=== PATIENT | female | born 1975 | race Caucasian/White ===

== ENCOUNTER 2024-03-22 09:51 | Emergency (ER) | payer MEDICAID, SELFPAY ==
--- NOTE | 2024-03-22 09:55 | EKG_ITS ---
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1975 Requested By: ED Temporary Provider Order Number: [id number] Reading MD: ED Temporary Provider Measurements Intervals [place] Rate: 68 P: 9 [place]: 175 QRS: -26 QRSD: 98 T: 9 QT: 390 QTc: 416 Interpretive Statements SINUS RHYTHM BORDERLINE LEFT AXIS DEVIATION [QRS AXIS < -20] INCOMPLETE RIGHT BUNDLE BRANCH BLOCK [90+ ms QRS DURATION, TERMINAL R IN V1/V2, 40+ ms S IN I/aVL/V4/V5/V6] MINIMAL VOLTAGE CRITERIA FOR LVH, CONSIDER NORMAL VARIANT [MEETS CRITERIA IN ONE OF: R(aVL), S(V1), R(V5), R(V5/V6)+S(V1)] No previous ECG available for comparison /store/S0/[id number]
[2024-03-22 10:01] VITALS: BP 158/87; PULSE 66; RESP 18; TEMP 36.6; O2SAT 98
[2024-03-22 10:02] VITALS: BMI 43.5
--- NOTE | 2024-03-22 10:19 | XR_ITS ---
Examination: CT brain head without contrast. 2-D sagittal coronal reconstructions Date and time of exam:March 22, 2024 1330 hrs. Indications: Headaches dizziness syncopal episode at work today CTDI: vol (mGy):47 DLP: (mGycm):927 Technique: Multiple CT axial sections of the brain have been obtained, 5 mm slice thickness. Contrast has not been administered. 2-D sagittal, coronal reconstructions have been obtained Low dose protocols were performed. One or more of the following dose reduction techniques were used; automated exposure control, adjustment of the mA and/or KV according to patient size, use of iterative reconstruction technique. Findings: No significant ventricular enlargement. Intra-axial or extra-axial hemorrhage density is not seen. No mass effect or midline shift Basal cisterns are not remarkable. Fourth ventricle is midline. Cranial vault intact. Impression: Negative for acute hemorrhage, mass effect or midline shift Advise clinical correlation and follow-up accordingly
[2024-03-22 10:38] VITALS: BP 131/92; BP 151/97; BP 164/95; PULSE 64; PULSE 71; PULSE 85
--- NOTE | 2024-03-22 10:50 | XR_ITS ---
Examination: CTA chest, with intravenous contrast. CTA abdomen, with intravenous contrast. CTA pelvis, with intravenous contrast. 2-D sagittal and coronal reconstructions. 3-D reconstructions. Date and time of exam: March 22, 2024 at 1358 hrs. Indications: Chest abdominal pain onset today CTDI vol (mgy) 15 DLP (MGycm) 1091 Technique: Multiple CTA images, 2.0 mm slice thickness, obtained chest, abdomen, pelvis, with the high-resolution 64 slice scanner. 100 cc Isovue-370 is administered intravenously. Sagittal and coronal 2-D reconstructions are obtained. 3-D reconstructions, angiographic images are obtained. 3-D postprocessing, including vascular maximum intensity projections. Low dose protocols were performed. One or more of the following dose reduction techniques were used; automated exposure control, adjustment of the mA and/or KV according to patient size, use of iterative reconstruction technique. Findings: No thoracic aortic aneurysmal dilatation or dissection Pulmonary artery segments are not enlarged No pulmonary artery emboli No paratracheal tracheobronchial or bronchopulmonary adenopathy No pneumonia pulmonary edema or pleural disease 8mm pulmonary nodule posterior right lung No visualized liver or splenic lesion No gallstones No pancreatic mass or peripancreatic edema No renal or ureteral calculi, no hydronephrosis Aorta normal size 28 mm fat-containing umbilical hernia No bowel obstruction Small lymph nodes in the right lower mesentery Normal appendix No diverticulitis Moderate stool throughout the entire colon No pelvic mass Urinary bladder intact Thoracic lumbar vertebral bodies demonstrate mild spondylosis Osseous structures appear intact Impression: No thoracic aortic aneurysmal dilatation or dissection Negative for pulmonary artery emboli No paratracheal tracheobronchial or bronchopulmonary significant lymphadenopathy 8mm pulmonary nodule posterior right lung, recommend follow-up PA lateral chest in 3 months No renal or ureteral calculi Negative for pancreatitis Normal appendix No bowel obstruction or diverticulitis
--- NOTE | 2024-03-22 10:55 | PD.EDNEURO ---
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 These symptoms occurred during her break at 8:45 AM. On triage, her neurological examination was unremarkable. However, when the patient was asked to stand and ambulate, she became lightheaded, diaphoretic, and presyncopal again. Orthostatic vital signs revealed a baseline blood pressure of 164/95 mmHg and a pulse of 71 bpm while lying down. Upon standing, her blood pressure initially dropped to 151/97 mmHg with a heart rate of 85 bpm, and then further dropped to 131/92 mmHg with a heart rate of 65 bpm. The patient continued to experience lightheadedness during these measurements. Differential Diagnosis: The patient's symptoms, including lightheadedness, presyncope, and the change in vital signs with orthostatism, suggest a possible diagnosis of orthostatic hypotension. The blood pressure drop upon standing, along with the associated symptoms, can be indicative of an autonomic failure or volume depletion, but this should be explored further. Other possible causes to consider are: Vasovagal syncope: Although this typically presents with a more dramatic drop in heart rate and blood pressure, it could be a consideration, especially if there is an element of emotional or physical stress triggering her symptoms. Cardiovascular issues: Conditions like arrhythmias or structural heart disease could cause presyncope and orthostatic hypotension. Electrolyte imbalances: Particularly if the patient is dehydrated or on medications, electrolyte disturbances could contribute to symptoms. Neurological issues: Although the neurological exam was unremarkable, a subtle issue with autonomic regulation (e.g., postural orthostatic tachycardia syndrome, or POTS) could be considered. Hypoglycemia: If she has any underlying conditions such as diabetes or is on any medications that could lower blood sugar, hypoglycemia could be contributing to the symptoms. Next Steps: Further evaluation of orthostatic hypotension: Checking hydration status and electrolyte levels could help in identifying volume depletion or imbalances. Cardiac workup: An ECG, echocardiogram, or Holter monitor may be needed if an arrhythmia or structural heart problem is suspected. Neurological follow-up: Consider evaluation by a neurologist to rule out any autonomic dysfunction if episodes persist. Laboratory tests: Serum electrolytes, blood glucose, and possibly a complete blood count (CBC) to assess for anemia. Related Data Home Medications ?Medication ?Instructions ?Recorded ?Confirmed metoprolol succinate 50 mg 50 mg PO QDAY 08/12/23 08/12/23 tablet,extended release 24 hr pantoprazole 40 mg tablet,delayed 40 mg PO QDAY 08/12/23 08/12/23 release sertraline 100 mg tablet 100 mg PO QDAY 08/12/23 08/12/23 Previous Rx's ?Medication ?Instructions ?Recorded ciprofloxacin HCl 500 mg tablet 500 mg PO BID #10 tabs 08/16/23 Allergies Allergy/AdvReac Type Severity Reaction Status Date / Time Penicillins Allergy Severe HIVES AND Verified 03/22/24 09:52 DIFFICULTY BREATHING Review of Systems Review of Systems Systems Reviewed: All systems reviewed, normal except as documented ED Exam General Limitations: Present no limitations General appearance: Present alert Head Head exam: Present atraumatic Eye Eye exam: Present normal appearance, PERRL and EOMI ENT ENT exam: Present normal exam Neck Neck exam: Present normal inspection Respiratory Respiratory exam: Present normal lung sounds bilaterally Cardiovascular Cardiovascular exam: Present regular rate and normal rhythm Abdominal Exam Abdominal exam: Present soft and normal bowel sounds Extremities Exam Extremities exam: Present normal inspection Back Exam Back exam: Present normal inspection Neurological Exam Neurological exam: Present alert, oriented X3 and CN II-XII intact Psychiatric Psychiatric exam: Present depressed and anxious Skin Skin exam: Present warm and dry Course Course Course Narrative: 1257 Patient reports feeling heaviness in her chest. Will repeat her troponin. Still is symptomatic when she stands up. 1410 Patient's orthostatic hypotension has resolved. It is unclear at this point what happened. Apparently had a transient autonomic nervous system event that she was not able to regulate her blood pressure and symptoms when standing up. I discussed the patient with Dr. Jerome who recommends the patient to be admitted overnight for telemetry observation and probably an echocardiogram either inpatient or as outpatient. He will consult with the patient. Patient was discussed with the hospitalist team who will admit the patient. A vast number of possible etiologies were considered, including but not limited to acute coronary syndrome, intracranial pathology, as well as pulmonary embolism, as well as metabolic causes such as anemia and electrolyte imbalances, which were all ruled out at this time. Quality Measures none Orders Category Date Time Status Telecommunications Equipment Installer STAT Care 03/22/24 10:18 Completed EKG (ED ONLY) *Do not use* NOW Care 03/22/24 09:55 Completed Insert IV STAT Care 03/22/24 10:18 Completed Orthostatic Vitals STAT Care 03/22/24 10:[address] angio chest abdomen pelvis Stat Exams 03/22/24 10:[address] head/brain wo con Stat Exams 03/22/24 10:19 Completed EKG (ED Only) Stat Exams 03/22/24 09:55 Draft CBC Stat Lab 03/22/24 10:59 Completed Comprehensive Metabolic Panel Stat Lab 03/22/24 10:59 Completed HCG Qualitative,Urine Stat Lab 03/22/24 11:02 Completed Prothrombin Time with INR Stat Lab 03/22/24 10:59 Completed Troponin I Stat Lab 03/22/24 10:59 Completed Troponin I Stat Lab 03/22/24 13:20 Completed Urinalysis Stat Lab 03/22/24 11:02 Completed Vital Signs Vital signs: Vital Signs Temperature 97.8 F 03/22/24 10:01 Pulse Rate 66 03/22/24 10:01 Respiratory Rate 18 03/22/24 10:01 Blood Pressure 158/87 H 03/22/24 10:01 Pulse Oximetry (%) 98 03/22/24 10:01 Oxygen Delivery Method Room Air 03/22/24 10:01 Neuro Symptoms / Deficit MDM Narrative MDM Narrative:: Patient currently has no active bleeding to the foot. See the course section for detailed explanation Patient data External records reviewed:: [facility] previous records Clinical information provided by:: patient Social determinants that could affect healthcare access:: none Patient has the following chronic illnesses:: Not applicable How is presenting disease/condition affected by chronic disease/condition?: no chronic disease Evaluation data The following diagnostics were reviewed and interpreted by me:: lab results, radiology exam(s) and EKG tracing(s) Lab and/or radiology exams considered but not ordered:: NA Interpretation Summary: See the course section Medications / Prescriptions Medications or Prescriptions considered but not ordered:: Not applicable Medication administrations:: Not applicable Consultations Consultation(s) initiated? (list below): Yes Consultation #1 (Physician, Specialty, Details): Cardiology Dr. Jerome Consultation #2 (Physician, Specialty, Details): Hospitalist Diagnosis Neuro Differential Diagnosis: peripheral neuropathy, cerebrovascular accident and transient cerebral ischemia Most likely diagnosis given after review of the tests above:: See course section Admission Indicated Admission indicated?: indicated Admission Request Was there a request for admission?: Yes Admission Attestation Admission request attestation: Discussed case with [] from Hospitalist service regarding admission. Discussed patients ED course, exam findings, labs, and radiology results. The Hospitalist [agrees,declines] to accept the patient for admission. Disposition Plan Disposition Plan: Admit Critical Care Time Critical Care Time Critical Care Time: Yes Total Critical Care Time (min.): 50 Attestation: Patient required serial neurologic checks while in the emergency department Discharge Plan Plan Patient Disposition: Left Against Medical Advice Patient condition on transfer: Stable Prescriptions/Referrals Prescriptions/Med Rec: No Action metoprolol succinate 50 mg tablet extended release 24 hr 50 mg PO QDAY sertraline 100 mg tablet 100 mg PO QDAY pantoprazole 40 mg tablet,delayed release (DR/EC) 40 mg PO QDAY ciprofloxacin HCl 500 mg tablet 500 mg PO BID Qty: 10 0RF Referrals: Renetta Knutson PA-C [Primary Care Provider] - In 1 week Problem List Clinical Impression: Autonomic orthostatic hypotension Patient/Caregiver Discharge Instructions Print Language: Khmer Stand Alone Forms: [employer] Award Info., Patient Portal Info Letter
[2024-03-22 11:11] LABS: Collection Type, Urine Clean Catch
[2024-03-22 11:22] LABS: Basophils # (Auto) 0.1 Thou/mm3 (0.0-0.2); Basophils % (Auto) 1 % (0-2.5); Eosinophils # (Auto) 0.5 Thou/mm3 (0.0-0.5); Eosinophils % (Auto) 8 % (0-10); Hemoglobin 12.8 g/dL (12.0-16.0); Immature Granulocytes % (Auto) 0 % (0-0); Immature Granulocytes Auto 0.01 Thou/mm3 (0.00-0.00); Lymphocytes # (Auto) 2.3 Thou/mm3 (1.0-4.8); Lymphocytes % (Auto) 37 % (10-50); Mean Corpuscular HGB Conc 33.7 g/dl (31.0-37.0); Mean Corpuscular Hemoglobin 30.9 pg (25.0-35.0); Mean Corpuscular Volume 92 fL (80-100); Monocytes # (Auto) 0.8 Thou/mm3 (0.0-0.8); Monocytes % (Auto) 13 % (0-12); Neutrophils # (Auto) 2.7 Thou/mm3 (1.8-7.7); Neutrophils % (Auto) 42 % (37-80); Nucleated Red Blood Cell % 0 /100 WBC (0); Platelet Count 284 Thou/mm3 (140-440); RDW Standard Deviation 48.3 fL (36.4-46.3); Red Blood Count 4.14 Miln/mm3 (4.00-5.20); White Blood Count 6.4 Thou/mm3 (3.6-11.0)
[2024-03-22 11:24] LABS: HCG Qualitative,Urine Negative
[2024-03-22 11:29] LABS: Prothrombin Time 10.8 Seconds (9.0-12.2)
[2024-03-22 11:31] LABS: Bacteria,Urine 2+; Bilirubin,Urine Negative (Negative); Blood,Urine Negative (Negative); Color,Urine Yellow (Lt Yel-Yel); Glucose, Urine Negative (Negative); Ketones,Urine Negative (Negative); Leukocyte Esterase,Urine Positive (Negative); Nitrite,Urine Negative (Negative); Protein,Urine Trace (Neg - Trace); RBC,Urine 2 /hpf (0-3); Specific Gravity,Urine 1.034 (1.001-1.035); Squamous Epithelial Cell,Urine 13 /hpf (0-5); Urobilinogen,Urine Negative mg/dL (0.0-1.0); WBC,Urine 2 /hpf (0-5)
[2024-03-22 11:32] LABS: Alanine Aminotransferase 12 U/L (10-49); Albumin, Serum 4.3 gm/dL (3.5-5.0); Albumin/Globulin Ratio 1.5 (1.2-2.2); Alkaline Phosphatase 72 U/L (46-116); Anion Gap 5 (7-16); Aspartate Amino Transferase 10 U/L (0-34); BUN/Creatinine Ratio 20 Ratio (12-20); Bilirubin,Total 0.4 mg/dL (0.3-1.2); Blood Urea Nitrogen 18 mg/dL (9-23); Calcium 9.4 mg/dL (8.3-10.6); Calcium (Corrected) 9.4 mg/dL (8.5-10.1); Carbon Dioxide 27.7 mMol/L (20.0-31.0); Chloride 101 mMol/L (98-107); Creatinine (Component) 0.9 mg/dL (0.6-1.3); Estimated Creatinine Clearance 104.3 mL/min (>60); Globulin 2.9 gm/dL (2.3-3.5); Glucose 92 mg/dL (74-106); Osmolality,Calculated 270 (275-295); Potassium 4.6 mMol/L (3.4-5.1); Sodium 134 mMol/L (136-145); Total Protein 7.2 gm/dL (5.7-8.2); Troponin I < 0.002 ng/mL (0.0-0.045); eGFR > 60 See Note
[2024-03-22 11:32] LABS: Clarity,Urine Hazy (Clear/Hazy)
[2024-03-22 13:42] LABS: Troponin I < 0.002 ng/mL (0.0-0.045)
[2024-03-22 17:01] VITALS: BP 112/90; PULSE 75; RESP 14; TEMP 36.6; O2SAT 97
--- NOTE | 2024-03-22 17:16 | PD.RESEVENT ---
Documentation for date of: 03/22/24 Event Note Event Note: Internal medicine team was called for admission of a 48 F with PMH of HTN, COPD, prediabetes, Depression, gastric ulcers, and GERD due to presyncope and need for cardiac work up as per cardiolgist who talked to ED physician. Upon assessment patient stated she did not want to be admitted at this time as she had someone who she takes care off at home and that she did not have anybody to takeover in her place at this time. We spoke with the patient and advised about the need for further work up, but patient stated she would let the ED physician know if she wanted to get admitted. ED physician was notified to call us if patient did decide to be admitted. We explained all the risks if she left without any further workup and she understood this. She was advised that if Sx persist or worsen to come back to the ER. General: A/O x3, no acute distress Eyes: PERRL, EOMI. Anicteric, vision grossly intact. Ears: No ear pain, no ear discharge, Hearing grossly intact. Nose: No nasal discharge. Mouth/Throat: Dry mucous membranes, poor dentation, no redness, no lesions. Neck: short Neck , non-tender, no cervical lymphadenopathy. Lungs: Clear SKY to auscultation and percussion, No accessory muscle use. Cardio: Normal S1/S2, regular rhythm, no murmurs, no JVD. Abdomen: Soft, non-tender, no palpable masses, peristalsis present, no guarding or rebound. Extremities: Symmetrical, no significant deformities, no peripheral edema , non-tender, peripheral pulses presents. Skin: No rashes, no lesions, warm to touch. Neuro: No focal neurological deficits. motor and sensory intact. SKY LE and UE strength 4/5. Psych: mildly anxious Case disclosed with Attending Dr. Reno Stanley PGY1
== END 2024-03-22 17:03 | disposition left against medical advice (07) ==
PROVIDERS: Emergency Provider Emergency Medicine; PCP Physician Assistant
DX: I95.1 Orthostatic hypotension (principal); I45.10 Unspecified right bundle-branch block; Z53.29 Procedure and treatment not carried out because of patient's decision for other reasons
CPT/HCPCS: 36415; 70450; 71275; 74174; 80053; 81001; 81025; 84484; 85025; 85610; 93005; 99291; A4649; Q9967

== ENCOUNTER → 2024-05-07 | Outpatient (CLI) | payer MEDICAID, SELFPAY ==
--- NOTE | 2024-05-07 14:00 | ECHO_ITS ---
Transthoracic Echo Report Ht (in): 64 Wt (lb): 242 Exam Location: Echo Lab Status: Outpatient Senior Electronics Design Engineer: Gail Souza Indications: Procedure Performed: BP: / HR: Rhythm: Sinus Technical Quality: Fair MEASUREMENTS (Male / Female) Normal Values 2D ECHO LV Diastolic Diameter PLAX 5.0 cm 4.2 - 5.9 / 3.9 - 5.3 cm LV Systolic Diameter PLAX 3.3 cm IVS Diastolic Thickness 1.0 cm 0.6 - 1.0 / 0.6 - 0.9 cm LVPW Diastolic Thickness 0.9 cm 0.6 - 1.0 / 0.6 - 0.9 cm LV Relative Wall Thickness 0.4 LVOT Diameter 2.1 cm LA Volume Index 21.8 cm?/m? 16 - 28 cm?/m? Ascending Aorta Diameter 3.3 cm M-MODE Aortic Root Diameter MM 2.6 cm LA Systolic Diameter MM 3.6 cm LA Ao Ratio MM 1.4 AV Cusp Separation MM 2.1 cm DOPPLER AV Peak Velocity 135.0 cm/s AV Peak Gradient 7.3 mmHg AV Mean Gradient 3.0 mmHg AV Velocity Time Integral 26.9 cm LVOT Peak Velocity 122.0 cm/s LVOT Peak Gradient 6.0 mmHg LVOT Velocity Time Integral 27.2 cm AV Area Cont Eq vti 3.5 cm? AV Area Cont Eq pk 3.1 cm? MV Peak Velocity 84.6 cm/s MV Peak Gradient 2.9 mmHg MV Mean Velocity 55.9 cm/s MV Mean Gradient 1.0 mmHg MV Area PHT 3.4 cm? Mitral E Point Velocity 83.4 cm/s Mitral A Point Velocity 89.2 cm/s Mitral E to A Ratio 0.9 LV E' Lateral Velocity 11.6 cm/s Mitral E to LV E' Lateral Ratio 7.2 LV E' Septal Velocity 8.6 cm/s Mitral E to LV E' Septal Ratio 9.7 FINDINGS Left Ventricle Normal left ventricular size, wall thickness, systolic function with no obvious regional wall motion abnormalities. The ejection fraction is visually estimated at 60-65 %. Right Ventricle The right ventricle is normal in size and systolic function. Left Atrium The left atrium is normal by two-dimensional, color flow and Doppler imaging with no structural abnormalities, no thrombus formation present. Right Atrium The right atrium is normal by two-dimensional imaging, color flow and Doppler imaging with no struct ural abnormalities, no thrombus formation present. Atrial Septum The interatrial septum appears normal with no evidence of a shunt. Aorta The aorta is normal by two-dimensional, color flow and Doppler interrogation. Mitral Valve The mitral valve is normal by two-dimensional, color flow and Doppler interrogation. There is trace mitral valve regurgitation. Aortic Valve The aortic valve is trileaflet and normal by two-dimensional, color flow and Doppler interrogation. There is no significant aortic valve regurgitation. Tricuspid Valve The tricuspid valve is normal by two-dimensional, color flow and Doppler interrogation. There is tra ce tricuspid valve regurgitation. Pulmonic Valve There is no significant pulmonic valve regurgitation. Vessels The pulmonary artery appears normal. The inferior vena cava pulmonary and hepatic veins appear bentley l. Pericardium The pericardium is normal by two-dimensional imaging. There is no significant pericardial effusion. CONCLUSIONS Normal LV size and function. Estimated EF 60-65% Normal RV size and function Trace M, TR. Mirian Canales (Electronically Signed) Final Date: 08 May 2024 08:34
== END | disposition home or self-care (01) ==
PROVIDERS: PCP Physician Assistant; Referring Provider Physician Assistant; Visit Provider Physician Assistant
DX: I08.1 Rheumatic disorders of both mitral and tricuspid valves (principal)
CPT/HCPCS: 93306

== ENCOUNTER 2024-07-18 12:02 | Emergency (ER) | payer MEDICAID, SELFPAY ==
[2024-07-18 12:27] VITALS: BP 127/88; PULSE 70; RESP 17; TEMP 36.7; O2SAT 97; BMI 39.2
--- NOTE | 2024-07-18 12:41 | XR_ITS ---
Examination: CT brain head without contrast. 2-D sagittal coronal reconstructions Date and time of exam:July 18, 2024 at 1401 hrs. Indications: Onset dizziness today CTDI: vol (mGy):47.5 DLP: (mGycm):912 Technique: Multiple CT axial sections of the brain have been obtained, 5 mm slice thickness. Contrast has not been administered. 2-D sagittal, coronal reconstructions have been obtained Low dose protocols were performed. One or more of the following dose reduction techniques were used; automated exposure control, adjustment of the mA and/or KV according to patient size, use of iterative reconstruction technique. Findings: No significant ventricular enlargement. Intra-axial or extra-axial hemorrhage density is not seen. No mass effect or midline shift Basal cisterns are not remarkable. Fourth ventricle is midline. Cranial vault intact. Impression: Negative for acute hemorrhage, mass effect or midline shift Advise clinical correlation and follow-up accordingly
--- NOTE | 2024-07-18 12:41 | XR_ITS ---
Examination: AP chest single view Technique one AP portable upright chest single view Exam date and time: July 18, 2024 1215 hrs. Indications: Chest pain beginning one week ago with syncopal episodes Findings: No significant cardiac enlargement. Lungs are clear. Osseous structures are intact Impression: No active disease
--- NOTE | 2024-07-18 12:41 | EKG_ITS ---
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1975 Requested By: Brittani Knutson ([facility]) [place] Order Number: [id number] Reading MD: Brittani Knutson ([facility]) [place] Measurements Intervals [place] Rate: 66 P: 24 ID: [id number] QRS: -20 QRSD: 98 T: 26 QT: 402 QTc: 421 Interpretive Statements SINUS RHYTHM LOW QRS VOLTAGE IN PRECORDIAL LEADS [QRS DEFLECTION < 1.0 mV IN CHEST LEADS] PATTERN CONSISTENT WITH PULMONARY DISEASE INCOMPLETE RIGHT BUNDLE BRANCH BLOCK [90+ ms QRS DURATION, TERMINAL R IN V1/V2, 40+ ms S IN I/aVL/V4/V5/V6] Compared to ECG 03/22/2024 10:09:54 Low QRS voltage now present /store/S0/[id number].pdf
--- NOTE | 2024-07-18 12:43 | PD.EDRME ---
Rapid Medical Screening Exam RME Arrival date/time: 07/18/24 12:02 This a 48-year-old female presents to the emergency department with complaints of generalized malaise, dizziness and shortness of breath. I have greeted and performed a focused initial assessment of this patient. Initial appropriate labs ordered at this time. A comprehensive ED assessment and evaluation of the patient and analysis of all test and completion of medical decision making process will be conducted by additional ED provider. Chief Complaint: Dizziness Time Seen by Provider: 07/18/24 12:30 Vital signs: Vital Signs Temperature 98.0 F 07/18/24 12:27 Pulse Rate 70 07/18/24 12:27 Respiratory Rate 17 07/18/24 12:27 Blood Pressure 127/88 H 07/18/24 12:27 Pulse Oximetry (%) 97 07/18/24 12:27 Oxygen Delivery Method Room Air 07/18/24 12:27
[2024-07-18] MEDS: MECLIZINE HCL 25 MG TABLET PO (13:09)
[2024-07-18 13:29] LABS: Basophils # (Auto) 0.1 Thou/mm3 (0.0-0.2); Basophils % (Auto) 1 % (0-2.5); Eosinophils # (Auto) 0.4 Thou/mm3 (0.0-0.5); Eosinophils % (Auto) 6 % (0-10); Hematocrit 37.8 % (36.0-46.0); Hemoglobin 12.5 g/dL (12.0-16.0); Immature Granulocytes % (Auto) 0 % (0-0); Immature Granulocytes Auto 0.02 Thou/mm3 (0.00-0.00); Lymphocytes # (Auto) 3.2 Thou/mm3 (1.0-4.8); Lymphocytes % (Auto) 45 % (10-50); Mean Corpuscular HGB Conc 33.1 g/dl (31.0-37.0); Mean Corpuscular Hemoglobin 30.6 pg (25.0-35.0); Mean Corpuscular Volume 93 fL (80-100); Monocytes # (Auto) 0.8 Thou/mm3 (0.0-0.8); Monocytes % (Auto) 12 % (0-12); Neutrophils # (Auto) 2.5 Thou/mm3 (1.8-7.7); Neutrophils % (Auto) 36 % (37-80); Nucleated Red Blood Cell % 0 /100 WBC (0); Platelet Count 333 Thou/mm3 (140-440); RDW Standard Deviation 45.2 fL (36.4-46.3); Red Blood Count 4.08 Miln/mm3 (4.00-5.20); White Blood Count 7.1 Thou/mm3 (3.6-11.0)
[2024-07-18 13:40] LABS: Prothrombin Time 10.5 Seconds (9.0-12.2)
[2024-07-18 13:49] LABS: Alanine Aminotransferase 15 U/L (10-49); Albumin, Serum 4.1 gm/dL (3.5-5.0); Albumin/Globulin Ratio 1.4 (1.2-2.2); Alkaline Phosphatase 70 U/L (46-116); Anion Gap 6 (7-16); Aspartate Amino Transferase 24 U/L (0-34); BUN/Creatinine Ratio 15 Ratio (12-20); Bilirubin,Total 0.3 mg/dL (0.3-1.2); Blood Urea Nitrogen 12 mg/dL (9-23); Calcium 8.8 mg/dL (8.3-10.6); Calcium (Corrected) 8.8 mg/dL (8.5-10.1); Carbon Dioxide 28.8 mMol/L (20.0-31.0); Chloride 101 mMol/L (98-107); Creatinine (Component) 0.8 mg/dL (0.6-1.3); Estimated Creatinine Clearance 110.5 mL/min (>60); Globulin 2.9 gm/dL (2.3-3.5); Glucose 80 mg/dL (74-106); Osmolality,Calculated 270 (275-295); Potassium 4.2 mMol/L (3.4-5.1); Sodium 136 mMol/L (136-145); Troponin I < 0.002 ng/mL (0.0-0.045); eGFR > 60 See Note
[2024-07-18 14:19] LABS: Collection Type, Urine Clean Catch
[2024-07-18 14:32] LABS: Bacteria,Urine 3+; Bilirubin,Urine Negative (Negative); Blood,Urine Negative (Negative); Color,Urine Lt-Yellow (Lt Yel-Yel); Glucose, Urine Negative (Negative); Ketones,Urine Negative (Negative); Leukocyte Esterase,Urine Negative (Negative); Nitrite,Urine Negative (Negative); PH,Urine 5.5 (5.0-7.0); Protein,Urine Negative (Neg - Trace); RBC,Urine 2 /hpf (0-3); Specific Gravity,Urine 1.017 (1.001-1.035); Squamous Epithelial Cell,Urine 2 /hpf (0-5); Urobilinogen,Urine Negative mg/dL (0.0-1.0); WBC,Urine 2 /hpf (0-5)
[2024-07-18 14:34] LABS: Clarity,Urine Hazy (Clear/Hazy)
[2024-07-18 14:43] LABS: Amphetamine/Methamp Scrn,U Negative (Negative); Barbiturate Screen,Urine Negative (Negative); Benzodiazepines Screen,Urine Negative (Negative); Benzoylecgonine Screen, Ur Negative (Negative); Fentanyl Screen,Urine Negative (Negative); Opiate Screen,Urine Negative (Negative); THC Screen,Urine Negative (Negative)
--- NOTE | 2024-07-18 16:52 | PD.EDDIZZY ---
ED Dizzyness RME/HPI General Chief Complaint: Dizziness Stated Complaint: Dizziness, sob since last pm Time Seen by Provider: 07/18/24 12:30 Source: patient Arrival date/time: 07/18/24 12:02 This is a 48-year-old female presents to the emergency department with complaints of generalized fatigue malaise body aches. She does report she was feeling slightly dizzy prompting her ED visit today. History of hypertension depression. no co of fever cough or shortness of breath, chest pain. Mode of arrival: ambulatory RME / HPI RME / HPI Narrative: 07/18/24 12:02 This a 48-year-old female presents to the emergency department with complaints of generalized malaise, dizziness and shortness of breath. I have greeted and performed a focused initial assessment of this patient. Initial appropriate labs ordered at this time. A comprehensive ED assessment and evaluation of the patient and analysis of all test and completion of medical decision making process will be conducted by additional ED provider. Related Data Home Medications ?Medication ?Instructions ?Recorded ?Confirmed metoprolol succinate 50 mg 50 mg PO QDAY 08/12/23 08/12/23 tablet,extended release 24 hr pantoprazole 40 mg tablet,delayed 40 mg PO QDAY 08/12/23 08/12/23 release sertraline 100 mg tablet 100 mg PO QDAY 08/12/23 08/12/23 Previous Rx's ?Medication ?Instructions ?Recorded ciprofloxacin HCl 500 mg tablet 500 mg PO BID #10 tabs 08/16/23 oseltamivir 75 mg capsule (Tamiflu) 75 mg PO BID 5 days #10 caps 07/18/24 Allergies Allergy/AdvReac Type Severity Reaction Status Date / Time Penicillins Allergy Severe HIVES AND Verified 07/18/24 12:06 DIFFICULTY BREATHING Review of Systems Review of Systems Systems Reviewed: All systems reviewed, normal except as documented ED Exam Narrative Physical exam: General: Sittiing in Exam table in no acute distress, answering questions appropriately HENT: normocephalic, atraumatic, EOMI, PERRLA, moist mucous membranes Chest: chest wall is nontender Cardiac: regular rate and rhythm, normal S1 and S2, no murmurs, rubs, or gallops, capillary refill ?2 seconds Pulmonary: clear to auscultation bilaterally, no wheezing, crackles, or rhonchi Abdominal: active bowel sounds, soft, nontender, nondistended Neuro: A&OX3, CN II-XII intact, sensation grossly intact bilaterally in UE and LE. Skin: no rashes, no ecchymosis Ext: no lower extremity edema Course Quality Measures none Orders Category Date Time Status Bedside Blood Glucose NOW Care 07/18/24 12:41 Completed Bedside Influenza A&B Antigen Test NOW Care 07/18/24 12:41 Completed EKG (ED ONLY) *Do not use* NOW Care 07/18/24 12:[address] head/brain wo con Stat Exams 07/18/24 12:41 Completed EKG (ED Only) Stat Exams 07/18/24 12:41 Draft XR chest 1V portable Stat Exams 07/18/24 12:41 Completed CBC Stat Lab 07/18/24 13:05 Completed Comprehensive Metabolic Panel Stat Lab 07/18/24 13:05 Completed Drug Screen,Urine Stat Lab 07/18/24 14:11 Completed Prothrombin Time with INR Stat Lab 07/18/24 13:05 Completed Troponin I Stat Lab 07/18/24 13:05 Completed Urinalysis Stat Lab 07/18/24 14:11 Completed Meclizine HCl [Antivert] Med 07/18/24 12:42 Discontinued 25 mg PO X1 ONE Vital Signs Vital signs: Vital Signs Temperature 98.0 F 07/18/24 12:27 Pulse Rate 70 07/18/24 12:27 Respiratory Rate 17 07/18/24 12:27 Blood Pressure 127/88 H 07/18/24 12:27 Pulse Oximetry (%) 97 07/18/24 12:27 Oxygen Delivery Method Room Air 07/18/24 12:27 Dizziness MDM Narrative MDM Narrative:: 48-year-old female evaluated in the emergency department for generalized malaise dizziness fatigue for 3 days. Patient tested positive for influenza A and B Patient is non-toxic appearing, appears to be well-hydrated and is breathing comfortably, without respiratory distress.. Patient is appropriate for outpatient management with anti-pyretics and supportive care. Patient is comfortable with plan. Patient to follow up with PMD in 2 days. Strict return to ED precautions given. ?Patient verbalized understanding. Patient data External records reviewed:: [facility] previous records Clinical information provided by:: patient Social determinants that could affect healthcare access:: none Patient has the following chronic illnesses:: Hypertension, depression How is presenting disease/condition affected by chronic disease/condition?: uneffected by Evaluation data The following diagnostics were reviewed and interpreted by me:: lab results, radiology exam(s) and EKG tracing(s) Lab and/or radiology exams considered but not ordered:: No Interpretation Summary: cc: Roberth Arroyo MD; Renetta Knutson PA-C; Eamon ([facility])Brittani AMORTIZATION SCHEDULE CLERK~ Examination: AP chest single view Technique one AP portable upright chest single view Exam date and time: July 18, 2024 1215 hrs. Indications: Chest pain beginning one week ago with syncopal episodes Findings: No significant cardiac enlargement. Lungs are clear. Osseous structures are intact Impression: No active disease Examination: CT brain head without contrast. 2-D sagittal coronal reconstructions Date and time of exam:July 18, 2024 at 1401 hrs. Indications: Onset dizziness today CTDI: vol (mGy):47.5 DLP: (mGycm):912 Technique: Multiple CT axial sections of the brain have been obtained, 5 mm slice thickness. Contrast has not been administered. 2-D sagittal, coronal reconstructions have been obtained Low dose protocols were performed. One or more of the following dose reduction techniques were used; automated exposure control, adjustment of the mA and/or KV according to patient size, use of iterative reconstruction technique. Findings: No significant ventricular enlargement. Intra-axial or extra-axial hemorrhage density is not seen. No mass effect or midline shift Basal cisterns are not remarkable. Fourth ventricle is midline. Cranial vault intact. Impression: Negative for acute hemorrhage, mass effect or midline shift Advise clinical correlation and follow-up accordingly Medications / Prescriptions Medications or Prescriptions considered but not ordered:: No Medication administrations:: Medication Administration History Discontinued Medications Meclizine HCl (Meclizine Hcl 25 Mg Tablet) 25 mg PO X1 ONE Stop: 07/18/24 12:43 Last Admin: 07/18/24 13:09 Dose: 25 mg Documented By: KM All medications administered and effective Consultations Consultation(s) initiated? (list below): No Diagnosis Dizziness Differential Diagnosis: benign paroxysmal positional vertigo, orthostatic hypotension, cerebrovascular accident, transient cerebral ischemia and other Most likely diagnosis given after review of the tests above:: Influenza Admission Indicated Admission indicated?: not indicated Admission Request Was there a request for admission?: No Disposition Plan Disposition Plan: Discharge Discharge Attestation Discharge Attestation: The patient and all family members were given an opportunity to ask questions and understood the discharge instructions. Discharge instructions specifically effects, indications for sooner follow up or return to the emergency department, and the expected course of current diagnosis. Patient condition: Stable Discharge Plan Plan Patient Disposition: HOME (Self Care) Patient condition on transfer: Stable Prescriptions/Referrals Prescriptions/Med Rec: New oseltamivir [Tamiflu] 75 mg capsule 75 mg PO BID 5 Days Qty: 10 0RF No Action metoprolol succinate 50 mg tablet extended release 24 hr 50 mg PO QDAY sertraline 100 mg tablet 100 mg PO QDAY pantoprazole 40 mg tablet,delayed release (DR/EC) 40 mg PO QDAY ciprofloxacin HCl 500 mg tablet 500 mg PO BID Qty: 10 0RF Referrals: Renetta Knutson PA-C [Primary Care Provider] - In 1 week Problem List Clinical Impression: Influenza A, Influenza B Patient/Caregiver Discharge Instructions Discharge Activity: activity as tolerated Education Materials: ED Influenza (Adult) Additional Instructions: Your rapid influenza test in clinic was positive. Start Tamiflu, antipyretics to pharmacy. Advised to increase hydration, warm tea and chicken rice soup can pasteurizer helper for throat pain. Please follow-up with your clinic 3-day follow-up. If you develop any type of respiratory distress or change in condition please go immediately to nearest emergency department Print Language: Korean Stand Alone Forms: I[employer]a Award Info., Work/School Release, Patient Portal Info Letter CLAYTON/LEON Supervising Physician CLAYTON/LEON Supervising Physician: Dr Moss
== END 2024-07-18 17:08 | disposition home or self-care (01) ==
PROVIDERS: Nurse Practitioner Primary Care; Emergency Provider Emergency Medicine; PCP Physician Assistant
DX: J10.1 Influenza due to other identified influenza virus with other respiratory manifestations (principal); F32.A Depression, unspecified; I10 Essential (primary) hypertension
CPT/HCPCS: 36415; 70450; 71045; 80053; 80307; 81001; 84484; 85025; 85610; 87400; 87811; 93005; 99284; A9270

== ENCOUNTER 2024-09-26 10:10 | Emergency (ER) | payer MEDICAID, SELFPAY ==
[2024-09-26 10:50] VITALS: BP 128/75; PULSE 65; RESP 15; TEMP 36.6; O2SAT 98
--- NOTE | 2024-09-26 11:26 | XR_ITS ---
Examination: CT abdomen with intravenous contrast CT pelvis with intravenous contrast 2-D coronal reconstructions 2-D sagittal reconstructions Date and time of exam:September 26, 2024 1514 hrs. Comparison March 22, 2024 Indications: Rectal bleeding beginning one week ago. CTDI: vol (mGy) 17.8 DLP: (mGycm) 931 Technique: Multiple axial sections of the abdomen and pelvis have been obtained. 64 slice high-resolution scanner used. 3 mm axial sections have been obtained, post intravenous injection 60 cc [id number] 2-D sagittal, coronal reconstructions obtained. Low dose protocols were performed. One or more of the following dose reduction techniques were used; automated exposure control, adjustment of the mA and/or KV according to patient size, use of iterative reconstruction technique. Findings: Fatty infiltration throughout the liver No focal liver or splenic lesions No gallstones No pancreatic mass No renal or ureteral calculi, no hydronephrosis No bowel obstruction No pericecal inflammatory change No diverticulitis or nonspecific colitis pattern Mild thickening of the rectal wall Impression: No renal or ureteral calculi, no hydronephrosis No CT findings of appendicitis bowel obstruction or diverticulitis No nonspecific colitis pattern Mild thickening of the rectal wall, consider proctitis, if rectal bleeding persists, recommend direct inspection
--- NOTE | 2024-09-26 11:26 | XR_ITS ---
Examination: CT lumbar spine, without contrast. 2-D sagittal reconstructions. 2-D coronal reconstructions. 3-D reconstructions. Date and time of exam:September 26, 2024 1512 hrs. Indications: Low back pain flank pain beginning one week ago CTDI: vol (mGy):51.8 DLP: (mGycm):1731 Technique: Multiple 1.25 mm axial sections of the lumbar spine without intravenous contrast have been obtained. 2-D sagittal and coronal reconstructions have been obtained. 3-D reconstructions have been obtained. Low dose protocols were performed. One or more of the following dose reduction techniques were used; automated exposure control, adjustment of the mA and/or KV according to patient size, use of iterative reconstruction technique. Findings: Moderate osteopenia. Adequate alignment lumbar vertebral bodies No lumbar vertebral body compression fracture No spondylolisthesis L5-S1 no disc protrusion L4-L5 no disc protrusion L3-L4 no disc protrusion L2-L3 no disc protrusion 1 mm nonobstructing left renal calculus Impression: No lumbar fracture No significant acquired spinal stenosis 1 mm nonobstructing left renal calculus
[2024-09-26 12:03] LABS: Lactate (Lactic Acid) 0.9 mMol/L (0.4-2.0)
[2024-09-26 12:16] LABS: Basophils # (Auto) 0.1 Thou/mm3 (0.0-0.2); Basophils % (Auto) 1 % (0-2.5); Eosinophils # (Auto) 0.4 Thou/mm3 (0.0-0.5); Eosinophils % (Auto) 6 % (0-10); Hematocrit 32.9 % (36.0-46.0); Hemoglobin 11.2 g/dL (12.0-16.0); Immature Granulocytes % (Auto) 0 % (0-0); Immature Granulocytes Auto 0.01 Thou/mm3 (0.00-0.00); Lymphocytes # (Auto) 3.2 Thou/mm3 (1.0-4.8); Lymphocytes % (Auto) 47 % (10-50); Mean Corpuscular Hemoglobin 29.9 pg (25.0-35.0); Mean Corpuscular Volume 88 fL (80-100); Monocytes % (Auto) 15 % (0-12); Neutrophils # (Auto) 2.1 Thou/mm3 (1.8-7.7); Neutrophils % (Auto) 31 % (37-80); Nucleated Red Blood Cell % 0 /100 WBC (0); Platelet Count 299 Thou/mm3 (140-440); RDW Standard Deviation 41.4 fL (36.4-46.3); Red Blood Count 3.75 Miln/mm3 (4.00-5.20); White Blood Count 6.7 Thou/mm3 (3.6-11.0)
[2024-09-26 12:30] LABS: B-Type Natriuretic Peptide 52 pg/mL (0-100)
[2024-09-26 12:31] LABS: Partial Thromboplastin Time 27.3 Seconds (22.0-36.0); Prothrombin Time 11.1 Seconds (9.0-12.2)
[2024-09-26 12:32] LABS: Alanine Aminotransferase 14 U/L (10-49); Albumin, Serum 3.8 gm/dL (3.5-5.0); Albumin/Globulin Ratio 1.5 (1.2-2.2); Alkaline Phosphatase 60 U/L (46-116); Anion Gap 10 (7-16); Aspartate Amino Transferase 25 U/L (0-34); BUN/Creatinine Ratio 12 Ratio (12-20); Bilirubin,Total 0.3 mg/dL (0.3-1.2); Blood Urea Nitrogen 12 mg/dL (9-23); Calcium 8.5 mg/dL (8.3-10.6); Calcium (Corrected) 8.7 mg/dL (8.5-10.1); Carbon Dioxide 27.3 mMol/L (20.0-31.0); Chloride 106 mMol/L (98-107); Globulin 2.6 gm/dL (2.3-3.5); Glucose 86 mg/dL (74-106); Lipase 42 U/L (12-53); Magnesium 2.2 mg/dL (1.6-2.6); Osmolality,Calculated 283 (275-295); Potassium 4.7 mMol/L (3.4-5.1); Sodium 143 mMol/L (136-145); Total Protein 6.4 gm/dL (5.7-8.2); Troponin I < 0.002 ng/mL (0.0-0.045); eGFR > 60 See Note
[2024-09-26] MEDS: SODIUM CHLORIDE 0.9% 1000 ML 1,000 ML 999 ML IV (13:20)
[2024-09-26] MEDS: ONDANSETRON INJ 2 MG/ML INJ 2 ML 4 MG IVP (13:22)
[2024-09-26] MEDS: MORPHINE SULF INJ 10 MG/ML VIAL 5 MG IVP (13:23)
[2024-09-26 13:39] VITALS: BMI 39.2
[2024-09-26 13:43] VITALS: PULSE 60
[2024-09-26 14:06] LABS: Collection Type, Urine Clean Catch
[2024-09-26 14:29] LABS: Bacteria,Urine Rare; Bilirubin,Urine Negative (Negative); Blood,Urine Negative (Negative); Clarity,Urine Clear (Clear/Hazy); Color,Urine Lt-Yellow (Lt Yel-Yel); Culture Indicated,Urine Not Indicated; Glucose, Urine Negative (Negative); Ketones,Urine Negative (Negative); Nitrite,Urine Negative (Negative); Protein,Urine Negative (Neg - Trace); RBC,Urine < 1 /hpf (0-3); Specific Gravity,Urine 1.018 (1.001-1.035); Squamous Epithelial Cell,Urine 1 /hpf (0-5); Urobilinogen,Urine Negative mg/dL (0.0-1.0); WBC,Urine 1 /hpf (0-5)
[2024-09-26 14:31] LABS: HCG Qualitative,Urine Negative
[2024-09-26 14:32] LABS: Leukocyte Esterase,Urine Negative (Negative)
[2024-09-26 14:57] VITALS: BP 132/81; PULSE 61; RESP 16; TEMP 36.4; O2SAT 99
[2024-09-26 17:10] VITALS: BP 134/89; PULSE 58; RESP 14; TEMP 36.4; O2SAT 96
--- NOTE | 2024-09-26 17:14 | PD.EDBACK ---
ED Back Injury Pain RME/HPI General Chief Complaint: GI Bleed Stated Complaint: blood in stool, weakness, dizziness, back pain Time Seen by Provider: 09/26/24 10:35 Arrival date/time: 09/26/24 10:10 RME / HPI RME / HPI Narrative: 48 year old female presents to the ED with a primary complaint of lower back pain that began approximately one week ago and has progressively worsened over the past 24 hours. She describes the pain as aching in nature, localized to the lower back, and rates it as moderate. The pain is aggravated by walking and movement, with minimal relief from rest. She has been taking Tylenol and Ibuprofen 600 mg twice daily with minimal relief. Accompanied by generalized weakness and bilateral lower extremity discomfort, worse on the right side. She also reports numbness in the right foot, specifically from the sole up to the ankle. She denies any loss of motor function or saddle anesthesia. Additionally, the patient reports the onset of bright red blood per rectum beginning four days ago, associated with painful bowel movements. She describes the pain as feeling like pooping glass. She denies any other complaints at this time. Related Data Home Medications ?Medication ?Instructions ?Recorded ?Confirmed metoprolol succinate 50 mg 50 mg PO QDAY 08/12/23 08/12/23 tablet,extended release 24 hr pantoprazole 40 mg tablet,delayed 40 mg PO QDAY 08/12/23 08/12/23 release sertraline 100 mg tablet 100 mg PO QDAY 08/12/23 08/12/23 Previous Rx's ?Medication ?Instructions ?Recorded ciprofloxacin HCl 500 mg tablet 500 mg PO BID #10 tabs 08/16/23 ciprofloxacin HCl 500 mg tablet 500 mg PO BID #20 tabs 09/26/24 metronidazole 500 mg tablet 500 mg PO TID #21 tabs 09/26/24 Allergies Allergy/AdvReac Type Severity Reaction Status Date / Time Penicillins Allergy Severe HIVES AND Verified 09/26/24 10:14 DIFFICULTY BREATHING Review of Systems Review of Systems Narrative Review of Systems: GEN: No fever, no chills, no weight loss EYES: No discharge, no visual changes, no pain HEENT: No ear pain, no congestion, no sore throat PULM: No shortness of breath, no cough, no congestion CV: No chest pain, no palpitations GI: No nausea, no vomiting, no diarrhea, no pain, no constipation, +painful bowel movements/rectal pain, +blood in stool : No frequency, no urgency and no dysuria MUSC/SKEL No joint pain, + back pain, +BLE pain R>L with right foot numbness SKIN: No rash NEURO: No weakness, no headache Past Medical History Past Medical History CARDIAC: Positive Hypertension; Negative Cardiac Disorders or Congestive Heart Failure RESPIRATORY: Positive Chronic Obstructive Pulmonary Disease (COPD) and Asthma (COPD) GENITOURINARY: Negative Renal Disease ENDOCRINE: Negative Diabetes Mellitus Type 1 or Diabetes Mellitus Type 2 (PRE DIABETIC) HEMATOLOGIC: Negative Sickle Cell Disease PSYCHO/SOCIAL: Positive Depression Family History FAMILY HISTORY: Positive Family Cancer (leukemia) Social History SMOKING STATUS: Never smoker ED Exam Narrative Physical exam: GENERAL APPEARANCE: alert and oriented x 4, well-developed, well-nourished, no acute distress HEENT: Normocephalic, atraumatic; pupils equal, round, reactive to light; EOMI; mucous membranes pink, moist; oropharynx clear NECK: Supple LUNGS: CTABL; no wheezes, no rales, no rhonchi HEART: Regular rate, regular rhythm; normal S1, S2; no murmurs ABDOMEN: non distended; normal BS; soft, mild left sided abd tenderness, no guarding, no rebound; no masses, no organomegaly, no hernia BACK: no CVA tenderness EXTREMITIES: varicose veins; atraumatic; no edema NEUROLOGIC: awake; alert and oriented x4; cranial nerves II-XII grossly intact; no focal sensory or motor deficits PSYCHIATRIC: appropriate mood and affect SKIN: warm, dry, normal color; no rashes Course Quality Measures none Orders Category Date Time Status CT Screening NOW Care 09/26/24 11:26 Completed Vocational Rehabilitation Technician NOW Care 09/26/24 11:25 Completed EKG (ED ONLY) *Do not use* NOW Care 09/26/24 11:[address] abdomen pelvis w con Stat Exams 09/26/24 11:[address] lumbar spine wo con Stat Exams 09/26/24 11:26 Completed EKG (ED Only) Stat Exams 09/26/24 11:25 Ordered B-Type Natriuretic Peptide Stat Lab 09/26/24 11:33 Completed CBC Stat Lab 09/26/24 11:33 Completed Comprehensive Metabolic Panel Stat Lab 09/26/24 11:33 Completed HCG Qualitative,Urine Stat Lab 09/26/24 13:21 Completed Lactate (Lactic Acid) Stat Lab 09/26/24 11:33 Completed Lipase Stat Lab 09/26/24 11:33 Completed Magnesium Stat Lab 09/26/24 11:33 Completed Partial Thromboplastin Time Stat Lab 09/26/24 11:33 Completed Prothrombin Time with INR Stat Lab 09/26/24 11:33 Completed Troponin I Stat Lab 09/26/24 11:33 Completed UA, C/S IF [Urinalysis, C/S if Indicated] Stat Lab 09/26/24 13:21 Completed Ciprofloxacin HCl [Ciprofloxacin] Med 09/26/24 16:39 Discontinued 500 mg PO X1 ONE HYDROcodone*/APAP 5/325 [[place] 5/325] Med 09/26/24 16:45 Discontinued 1 tab PO X1 ONE Morphine Inj Med 09/26/24 11:25 Discontinued 5 mg IVP X1 ONE Ondansetron Inj [Zofran Inj] Med 09/26/24 11:25 Discontinued 4 mg IVP X1 ONE Sodium Chloride 0.9% 1000 ml [Ns] 1,000 ml Med 09/26/24 11:25 Discontinued IV 999 mls/hr metroNIDAZOLE [Flagyl] Med 09/26/24 16:39 Discontinued 500 mg PO X1 ONE Vital Signs Vital signs: Vital Signs Temperature 97.9 F 09/26/24 10:50 Pulse Rate 65 09/26/24 10:50 Respiratory Rate 15 09/26/24 10:50 Blood Pressure 128/75 09/26/24 10:50 Pulse Oximetry (%) 98 09/26/24 10:50 Oxygen Delivery Method Room Air 09/26/24 10:50 Pulse ox is 98% on room air which is adequate. Back Pain / Injury MDM Narrative MDM Narrative:: Mandi Jackson am scribing for and in the presence of Dr. Ladd. 1627: Patient remains clinically stable throughout the emergency department visit. We reviewed all the results, analysis, and treatment plans. Patient is amenable to discharge. Strict return precautions were outlined. Patient was discharged in stable condition. Patient data External records reviewed:: [facility] previous records (I reviewed ED visit on 07/18/2024) Clinical information provided by:: patient Social determinants that could affect healthcare access:: none Patient has the following chronic illnesses:: HTN How is presenting disease/condition affected by chronic disease/condition?: uneffected by Evaluation data The following diagnostics were reviewed and interpreted by me:: lab results, radiology exam(s) and EKG tracing(s) (EKG @ 1135 AM. sinus bradycardia, rate 58, incomplete RBBB, no STEMI.) Lab and/or radiology exams considered but not ordered:: None Interpretation Summary: Ordering Physician: Beatrice Ladd MD Date of Service: 09/26/24 Procedure(s): CT abdomen pelvis w con Accession Number(s): [id number] cc: Roberth Arroyo MD; Beatrice Ladd MD; Renetta Knutson PA-C~ Examination: CT abdomen with intravenous contrast CT pelvis with intravenous contrast 2-D coronal reconstructions 2-D sagittal reconstructions Date and time of exam:September 26, 2024 1514 hrs. Comparison March 22, 2024 Indications: Rectal bleeding beginning one week ago. CTDI: vol (mGy) 17.8 DLP: (mGycm) 931 Technique: Multiple axial sections of the abdomen and pelvis have been obtained. 64 slice high-resolution scanner used. 3 mm axial sections have been obtained, post intravenous injection 60 cc [id number] 2-D sagittal, coronal reconstructions obtained. Low dose protocols were performed. One or more of the following dose reduction techniques were used; automated exposure control, adjustment of the mA and/or KV according to patient size, use of iterative reconstruction technique. Findings: Fatty infiltration throughout the liver No focal liver or splenic lesions No gallstones No pancreatic mass No renal or ureteral calculi, no hydronephrosis No bowel obstruction No pericecal inflammatory change No diverticulitis or nonspecific colitis pattern Mild thickening of the rectal wall Impression: No renal or ureteral calculi, no hydronephrosis No CT findings of appendicitis bowel obstruction or diverticulitis No nonspecific colitis pattern Mild thickening of the rectal wall, consider proctitis, if rectal bleeding persists, recommend direct inspection Dictated By: Roberth Arroyo MD Signed By: <Electronically signed by Roberth Arroyo MD in OV> 09/26/24 1559 Ordering Physician: Beatrice Ladd MD Date of Service: 09/26/24 Procedure(s): CT lumbar spine wo con Accession Number(s): [id number] cc: Roberth Arroyo MD; Beatrice Ladd MD; Renetta Knutson PA-C~ Examination: CT lumbar spine, without contrast. 2-D sagittal reconstructions. 2-D coronal reconstructions. 3-D reconstructions. Date and time of exam:September 26, 2024 1512 hrs. Indications: Low back pain flank pain beginning one week ago CTDI: vol (mGy):51.8 DLP: (mGycm):1731 Technique: Multiple 1.25 mm axial sections of the lumbar spine without intravenous contrast have been obtained. 2-D sagittal and coronal reconstructions have been obtained. 3-D reconstructions have been obtained. Low dose protocols were performed. One or more of the following dose reduction techniques were used; automated exposure control, adjustment of the mA and/or KV according to patient size, use of iterative reconstruction technique. Findings: Moderate osteopenia. Adequate alignment lumbar vertebral bodies No lumbar vertebral body compression fracture No spondylolisthesis L5-S1 no disc protrusion L4-L5 no disc protrusion L3-L4 no disc protrusion L2-L3 no disc protrusion 1 mm nonobstructing left renal calculus Impression: No lumbar fracture No significant acquired spinal stenosis 1 mm nonobstructing left renal calculus Dictated By: Roberth Arroyo MD Signed By: <Electronically signed by Roberth Arroyo MD in OV> 09/26/24 1555 Medications / Prescriptions Medications or Prescriptions considered but not ordered:: None Medication administrations:: Medication Administration History Discontinued Medications Hydrocodone Bitart/Acetaminophen (Hydrocodone/Apap 5/325 Tablet) 1 tab PO X1 ONE Stop: 09/26/24 16:46 Last Admin: 09/26/24 18:06 Dose: 1 tab Documented By: [facility] Ciprofloxacin (Ciprofloxacin Hcl 250 Mg Tablet) 500 mg PO X1 ONE Stop: 09/26/24 16:40 Last Admin: 09/26/24 18:06 Dose: 500 mg Documented By: ROD Sodium Chloride (Ns) 1,000 mls @ 999 mls/hr IV .Q1H1M ONE Stop: 09/26/24 12:25 Last Infusion: 09/26/24 15:04 Dose: Infused Documented By: Admin: 09/26/24 13:20 Dose: 999 mls/hr Documented By: CARRI Metronidazole (Metronidazole 250 Mg Tablet) 500 mg PO X1 ONE Stop: 09/26/24 16:40 Last Admin: 09/26/24 18:06 Dose: 500 mg Documented By: ROD Morphine Sulfate (Morphine Sulf Inj 10 Mg/Ml Vial) 5 mg IVP X1 ONE Stop: 09/26/24 11:26 Last Admin: 09/26/24 13:23 Dose: 5 mg Documented By: CARRI Ondansetron HCl (Ondansetron Inj 2 Mg/Ml Inj 2 Ml) 4 mg IVP X1 ONE Stop: 09/26/24 11:26 Last Admin: 09/26/24 13:22 Dose: 4 mg Documented By: CARRI See above Consultations Consultation(s) initiated? (list below): No Diagnosis Differential diagnosis back pain/injury: lumbar radiculopathy, sciatica, strain of lumbar region, renal colic, pyelonephritis and thoracic back pain Most likely diagnosis given after review of the tests above:: Abd pain low back pain colitis rectal bleeding Admission Indicated Admission indicated?: not indicated Admission Request Was there a request for admission?: No Disposition Plan Disposition Plan: Discharge Discharge Attestation Discharge Attestation: The patient and all family members were given an opportunity to ask questions and understood the discharge instructions. Discharge instructions specifically effects, indications for sooner follow up or return to the emergency department, and the expected course of current diagnosis. Patient condition: Stable Discharge Plan Plan Patient Disposition: HOME (Self Care) Prescriptions/Referrals Prescriptions/Med Rec: New ciprofloxacin HCl 500 mg tablet 500 mg PO BID Qty: 20 0RF metronidazole 500 mg tablet 500 mg PO TID Qty: 21 0RF No Action metoprolol succinate 50 mg tablet extended release 24 hr 50 mg PO QDAY sertraline 100 mg tablet 100 mg PO QDAY pantoprazole 40 mg tablet,delayed release (DR/EC) 40 mg PO QDAY ciprofloxacin HCl 500 mg tablet 500 mg PO BID Qty: 10 0RF Referrals: Renetta Knutson PA-C [Primary Care Provider] - In 1 week Problem List Clinical Impression: Abdominal pain, Low back pain, Colitis, Rectal bleeding Patient/Caregiver Discharge Instructions Education Materials: Self-Care for Low Back Pain, Understanding Colitis, ED Lower GI Bleeding (Stable) Print Language: Swedish Stand Alone Forms: Ilsa Award Info., Patient Portal Info Letter
[2024-09-26 18:05] VITALS: BP 145/90; PULSE 61; RESP 16; O2SAT 98
[2024-09-26] MEDS: HYDROcodone/APAP 5/325 TABLET 1 TAB PO (18:06)
[2024-09-26] MEDS: CIPROFLOXACIN HCL 250 MG TABLET 500 MG PO (18:06)
[2024-09-26] MEDS: metroNIDAZOLE 250 MG TABLET 500 MG PO (18:06)
== END 2024-09-26 18:15 | disposition home or self-care (01) ==
PROVIDERS: Emergency Provider Emergency Medicine; PCP Physician Assistant
DX: K52.9 Noninfective gastroenteritis and colitis, unspecified (principal); N20.0 Calculus of kidney
CPT/HCPCS: 36415; 72131; 74177; 80053; 81001; 81025; 83605; 83690; 83735; 83880; 84484; 85025; 85610; 85730; 93005; 96361; 96374; 96375; 99285; A4649; J2270; J2405; J7030; Q9967; A9270

== ENCOUNTER 2024-11-16 16:18 | Emergency (ER) | payer MEDICAID, SELFPAY ==
[2024-11-16 16:22] VITALS: BP 131/83; PULSE 84; RESP 20; TEMP 36.6; O2SAT 96
[2024-11-16 17:22] LABS: Collection Type, Urine Voided; Squamous Epithelial Cell,Urine 0 /hpf (0-5)
[2024-11-16 17:22] LABS: Basophils # (Auto) 0.1 Thou/mm3 (0.0-0.2); Basophils % (Auto) 1 % (0-2.5); Eosinophils # (Auto) 0.4 Thou/mm3 (0.0-0.5); Eosinophils % (Auto) 5 % (0-10); Hematocrit 35.5 % (36.0-46.0); Hemoglobin 12.0 g/dL (12.0-16.0); Immature Granulocytes Auto 0.03 Thou/mm3 (0.00-0.00); Lymphocytes # (Auto) 3.3 Thou/mm3 (1.0-4.8); Lymphocytes % (Auto) 39 % (10-50); Mean Corpuscular HGB Conc 33.8 g/dl (31.0-37.0); Mean Corpuscular Hemoglobin 28.9 pg (25.0-35.0); Mean Corpuscular Volume 86 fL (80-100); Monocytes # (Auto) 0.9 Thou/mm3 (0.0-0.8); Monocytes % (Auto) 11 % (0-12); Neutrophils # (Auto) 3.7 Thou/mm3 (1.8-7.7); Neutrophils % (Auto) 44 % (37-80); Nucleated Red Blood Cell # 0.00 Thou/mm3 (0.00-0.00); Nucleated Red Blood Cell % 0 /100 WBC (0); Platelet Count 326 Thou/mm3 (140-440); RDW Standard Deviation 41.3 fL (36.4-46.3); Red Blood Count 4.15 Miln/mm3 (4.00-5.20); White Blood Count 8.4 Thou/mm3 (3.6-11.0)
[2024-11-16 17:32] VITALS: BP 127/94; PULSE 72; RESP 18; TEMP 36.2; O2SAT 97
[2024-11-16 17:38] VITALS: PULSE 88; RESP 18; O2SAT 98; BMI 40.8
[2024-11-16 17:46] LABS: HCG,Qualitative Serum Negative
[2024-11-16 17:54] LABS: Alanine Aminotransferase 21 U/L (10-49); Albumin, Serum 4.2 gm/dL (3.5-5.0); Albumin/Globulin Ratio 1.3 (1.2-2.2); Alcohol, Blood Medical < 10.0 mg/dL (0-10.0); Alkaline Phosphatase 77 U/L (46-116); Anion Gap 9 (7-16); Aspartate Amino Transferase 36 U/L (0-34); BUN/Creatinine Ratio 16 Ratio (12-20); Bilirubin,Total 0.3 mg/dL (0.3-1.2); Blood Urea Nitrogen 14 mg/dL (9-23); Calcium 8.9 mg/dL (8.3-10.6); Calcium (Corrected) 8.9 mg/dL (8.5-10.1); Carbon Dioxide 28.9 mMol/L (20.0-31.0); Chloride 101 mMol/L (98-107); Creatinine (Component) 0.9 mg/dL (0.6-1.3); Estimated Creatinine Clearance 100.5 mL/min (>60); Globulin 3.2 gm/dL (2.3-3.5); Glucose 99 mg/dL (74-106); Lipase 36 U/L (12-53); Osmolality,Calculated 278 (275-295); Potassium 4.1 mMol/L (3.4-5.1); Sodium 139 mMol/L (136-145); Thyroid Stimulating Hormone 1.71 uIU/mL (0.55-4.78); Total Protein 7.4 gm/dL (5.7-8.2); eGFR > 60 See Note
[2024-11-16 17:57] LABS: Bacteria,Urine Rare; Bilirubin,Urine Negative (Negative); Blood,Urine Negative (Negative); Clarity,Urine Clear (Clear/Hazy); Color,Urine Colorless (Lt Yel-Yel); Culture Indicated,Urine Not Indicated; Glucose, Urine Negative (Negative); Ketones,Urine Negative (Negative); Leukocyte Esterase,Urine Negative (Negative); Nitrite,Urine Negative (Negative); PH,Urine 6.0 (5.0-7.0); Protein,Urine Negative (Neg - Trace); RBC,Urine 1 /hpf (0-3); Specific Gravity,Urine 1.005 (1.001-1.035); Urobilinogen,Urine Negative mg/dL (0.0-1.0); WBC,Urine 1 /hpf (0-5)
[2024-11-16 18:08] LABS: Amphetamine/Methamp Scrn,U Negative (Negative); Barbiturate Screen,Urine Negative (Negative); Benzodiazepines Screen,Urine Negative (Negative); Benzoylecgonine Screen, Ur Negative (Negative); Fentanyl Screen,Urine Negative (Negative); Opiate Screen,Urine Negative (Negative); THC Screen,Urine Negative (Negative)
--- NOTE | 2024-11-16 18:16 | PD.EDWEAK ---
ED Weakness RME/HPI General Chief complaint: Weakness Stated complaint: WEAKNESS AND DIZZINESS Time Seen by Provider: 11/16/24 16:25 Arrival date/time: 11/16/24 16:18 Limitations: no limitations RME / HPI RME / HPI Narrative: 48-year-old female who was brought in by EMS for generalized weakness and a near syncopal event. She also endorses new, auditory and visual hallucinations. She states she is hearing whispering in her ears from people who are not there and seeing shadows of people . She states her hallucinations were transient today and she has not experienced them since arriving to the ER. Patient states she has hypertension. She states she has a history of depression. No other mental health diagnoses. She denies any history of bipolar, schizophrenia, or schizoaffective disorder. She denies any history of of alcohol or drug abuse. She has no other acute complaints or concerns. Related Data Home Medications ?Medication ?Instructions ?Recorded ?Confirmed metoprolol succinate 50 mg 50 mg PO QDAY 08/12/23 08/12/23 tablet,extended release 24 hr pantoprazole 40 mg tablet,delayed 40 mg PO QDAY 08/12/23 08/12/23 release sertraline 100 mg tablet 100 mg PO QDAY 08/12/23 08/12/23 Previous Rx's ?Medication ?Instructions ?Recorded ciprofloxacin HCl 500 mg tablet 500 mg PO BID #10 tabs 08/16/23 ciprofloxacin HCl 500 mg tablet 500 mg PO BID #20 tabs 09/26/24 metronidazole 500 mg tablet 500 mg PO TID #21 tabs 09/26/24 Allergies Allergy/AdvReac Type Severity Reaction Status Date / Time Penicillins Allergy Severe HIVES AND Verified 09/26/24 10:14 DIFFICULTY BREATHING Review of Systems Review of Systems Systems Reviewed: All systems reviewed, normal except as documented ED Exam General Limitations: Present no limitations General appearance: Present alert and in no apparent distress Head Head exam: Present atraumatic Eye Eye exam: Present normal appearance, PERRL and EOMI ENT ENT exam: Present normal exam, normal oropharynx and mucous membranes moist Neck Neck exam: Present normal inspection, full ROM and trachea midline Chest Chest inspection: Present normal inspection and symmetric chest wall rise Respiratory Respiratory exam: Present normal lung sounds bilaterally Cardiovascular Cardiovascular exam: Present regular rate, normal rhythm and normal heart sounds Abdominal Exam Abdominal exam: Present soft and normal bowel sounds Extremities Exam Extremities exam: Present normal inspection and full ROM Back Exam Back exam: Present normal inspection and full ROM Neurological Exam Neurological exam: Present alert and oriented X3 Psychiatric Psychiatric exam: Present normal affect, normal mood and other (Patient is answering questions appropriately. She makes good eye contact in the conversation. She is not responding to any internal stimuli. She does not appear anxious at the time of our discussion.) Skin Skin exam: Present warm, dry, intact and normal color Course Quality Measures none Orders Category Date Time Status EKG (ED ONLY) *Do not use* NOW Care 11/16/24 18:22 Active EKG (ED Only) Stat Exams 11/16/24 18:22 Draft Alcohol, Blood Medical Stat Lab 11/16/24 17:00 Completed CBC Stat Lab 11/16/24 17:00 Completed CMP [Comprehensive Metabolic Panel] Stat Lab 11/16/24 17:00 Completed Drug Screen,Urine Stat Lab 11/16/24 17:12 Completed HCG,Qualitative Serum Stat Lab 11/16/24 17:00 Completed Lipase Stat Lab 11/16/24 17:00 Completed TSH [Thyroid Stimulating Hormone] Stat Lab 11/16/24 17:00 Completed UA, C/S IF [Urinalysis, C/S if Indicated] Stat Lab 11/16/24 17:12 Completed Ondansetron Inj [Zofran Inj] Med 11/16/24 16:28 Discontinued 4 mg IVP X1 ONE Vital Signs Vital signs: Vital Signs Temperature 97.9 F 11/16/24 16:22 Pulse Rate 84 11/16/24 16:22 Respiratory Rate 20 11/16/24 16:22 Blood Pressure 131/83 H 11/16/24 16:22 Pulse Oximetry (%) 96 11/16/24 16:22 Oxygen Delivery Method Room Air 11/16/24 16:22 Weakness MDM Narrative MDM Narrative:: 48-year-old female who was brought in by EMS for generalized weakness and a near syncopal event. She also endorses new, auditory and visual hallucinations. She states she is hearing whispering in her ears from people who are not there and seeing shadows of people . She states her hallucinations were transient today and she has not experienced them since arriving to the ER. Patient states she has hypertension. She states she has a history of depression. No other mental health diagnoses. She denies any history of bipolar, schizophrenia, or schizoaffective disorder. She denies any history of of alcohol or drug abuse. She has no other acute complaints or concerns. On exam, patient is nontoxic-appearing and in no visible signs stress. Her vital signs are stable. CBC reveals no leukocytosis or anemia. There is no metabolic derangement. Urinalysis is unremarkable. Urine drug screen was negative. Patient was offered medication due to her hallucinations and further workup with a CT scan which she declined. Once her test results were available, they were reviewed and discussed with the patient. She is feeling much better at this time. I do believe the patient be discharged from the ER. She is advised to follow-up with her primary care provider to consider further mental health evaluation and to also consider seeing cardiology as an outpatient for her weakness and near syncope. She was invited return as needed for worsening or emergent changes. Patient data External records reviewed:: [facility] previous records Clinical information provided by:: patient and EMS Social determinants that could affect healthcare access:: none Patient has the following chronic illnesses:: Hypertension How is presenting disease/condition affected by chronic disease/condition?: no chronic disease Evaluation data The following diagnostics were reviewed and interpreted by me:: lab results (CBC, CMP, urinalysis, and drug screen are unremarkable. Ethanol is unremarkable.) and EKG tracing(s) (Normal sinus rhythm at [address] changes or dynamic T waves.) Lab and/or radiology exams considered but not ordered:: n/a Interpretation Summary: Workup is unremarkable Medications / Prescriptions Medications or Prescriptions considered but not ordered:: n/a Medication administrations:: Medication Administration History Discontinued Medications Ondansetron HCl (Ondansetron Inj 2 Mg/Ml Inj 2 Ml) 4 mg IVP X1 ONE; Protocol Stop: 11/16/24 16:29 See above Consultations Consultation(s) initiated? (list below): No Diagnosis Weakness Differential Diagnosis: anemia, hypoglycemia and dehydration Most likely diagnosis given after review of the tests above:: Near syncope Admission Indicated Admission indicated?: not indicated Admission Request Was there a request for admission?: No Disposition Plan Disposition Plan: Discharge Discharge Attestation Discharge Attestation: The patient and all family members were given an opportunity to ask questions and understood the discharge instructions. Discharge instructions specifically effects, indications for sooner follow up or return to the emergency department, and the expected course of current diagnosis. Patient condition: Stable Discharge Plan Plan Patient Disposition: HOME (Self Care) Patient condition on transfer: Stable Prescriptions/Referrals Prescriptions/Med Rec: No Action metoprolol succinate 50 mg tablet extended release 24 hr 50 mg PO QDAY sertraline 100 mg tablet 100 mg PO QDAY pantoprazole 40 mg tablet,delayed release (DR/EC) 40 mg PO QDAY ciprofloxacin HCl 500 mg tablet 500 mg PO BID Qty: 20 0RF metronidazole 500 mg tablet 500 mg PO TID Qty: 21 0RF ciprofloxacin HCl 500 mg tablet 500 mg PO BID Qty: 10 0RF Referrals: No Primary/Family,Physician [Primary Care Provider] - In 1 week Problem List Clinical Impression: Near syncope, Hallucinations Patient/Caregiver Discharge Instructions Education Materials: Causes of Syncope Additional Instructions: - Maintain oral hydration. - Please contact your primary clinic to schedule close follow-up. It is important that you pursue further test as an outpatient. You may benefit from outpatient cardiology consultation for your weakness and near syncope. It is also important that you follow-up with your primary doctor to discuss your new, auditory and visual hallucinations. - Return here at anytime for any worsening or emergent changes Print Language: Iranian Stand Alone Forms: [employer] Award Info., Patient Portal Info Letter
--- NOTE | 2024-11-16 18:22 | EKG_ITS ---
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
[2024-11-16 18:59] VITALS: BP 127/94; PULSE 74; RESP 18; O2SAT 97
== END 2024-11-16 19:00 | disposition home or self-care (01) ==
PROVIDERS: Physician Assistant Medical; Emergency Provider Emergency Medicine
DX: R44.1 Visual hallucinations (principal); R44.0 Auditory hallucinations; R55 Syncope and collapse; I10 Essential (primary) hypertension
CPT/HCPCS: 36415; 80053; 80307; 80320; 81001; 83690; 84443; 84703; 85025; 93005; 99284; G0480

== ENCOUNTER 2025-02-15 12:41 | Emergency (ER) | payer MEDICAID, SELFPAY ==
--- NOTE | 2025-02-15 13:45 | XR_ITS ---
EXAMINATION: PA lateral chest 2 views TECHNIQUE: Upright PA lateral chest 2 views Date and time: February 15, 2025, 1343 hours COMPARISON: July 18, 2024 INDICATIONS: Coughing fever shortness of breath 5 days FINDINGS: Normal heart size Lungs are clear. The osseous structures are intact IMPRESSION: No active disease
[2025-02-15 13:50] VITALS: BP 149/100; PULSE 83; RESP 18; TEMP 36.7; O2SAT 97
--- NOTE | 2025-02-15 14:06 | EDNOTE_ITS ---
<Statement entered by Beatrice Ladd MD - 02/16/25 12:35> As co-signing physician, I was present and available for consult prn. I concur with the plan and care as documented by the midlevel provider. Upper Respiratory Inf. RME/HPI General Chief Complaint: General Adult/Misc Complain Stated Complaint: SICK FOR 5 DAYS Time Seen by Provider: 02/15/25 12:48 Source: patient Arrival date/time: 02/15/25 12:41 49-year-old female with no known medical history presents to the emergency room with a chief complaint of cough, congestion, sore throat x 5 days Mode of arrival: ambulatory Limitations: no limitations Related Data Home Medications ?Medication ?Instructions ?Recorded ?Confirmed metoprolol succinate 50 mg 50 mg PO QDAY 08/12/2307/28 tablet,extended release 24 hr pantoprazole 40 mg tablet,delayed 40 mg PO QDAY 08/12/23 release sertraline 100 mg tablet 100 mg PO QDAY 08/12/2307/28 Previous Rx's ?Medication ?Instructions ?Recorded ciprofloxacin HCl 500 mg tablet 500 mg PO BID #10 tabs 08/16/23 ciprofloxacin HCl 500 mg tablet 500 mg PO BID #20 tabs 09/26/24 metronidazole 500 mg tablet 500 mg PO TID #21 tabs albuterol sulfate 90 mcg/actuation 2 puff inhalation Q 6H PRN 02/15/25 aerosol inhaler (Ventolin HFA) shortness of breath or wheezing #6.7 grams azithromycin 250 mg tablet See Rx Instructions PO .COM PLEX #6 02/15/25 (Zithromax Z-Óscar) tabs Allergies Allergy/AdvReac Type Severity Reaction Status Date / Time Penicillins Allergy Severe HIVES AND Verified 02/15/25 12:44 DIFFICULTY BREATHING Review of Systems Review of Systems Systems Reviewed: All systems reviewed, normal except as documented Constitutional Constitutional: Reports system reviewed and no additional complaints, except as documented, Denies fatigue, Denies fever(s), Denies headache(s) and Denies weakness Eyes Eyes: Reports system reviewed and no additional complaints, except as documented, Denies blurry vision and Denies change in vision ENT Ears, Nose, Mouth, and Throat: Reports system reviewed and no additional complaints, except as documented, Denies otalgia, Denies headache(s), Denies nasal congestion, Denies throat swelling and Denies vertigo Cardiovascular Cardiovascular: Reports system reviewed and no additional complaints, except as documented, Denies chest pain, Reports dyspnea and Denies dyspnea on exertion Respiratory Respiratory: Reports system reviewed and no additional complaints, except as documented, Denies chest congestion, Reports cough, Reports dyspnea, Denies dyspnea on exertion and Reports wheezing Gastrointestinal Gastrointestinal: Reports system reviewed and no additional complaints, except as documented, Denies abdominal pain, Denies cramping, Denies nausea and Denies vomiting Genitourinary Genitourinary: Reports system reviewed and no additional complaints, except as documented Musculoskeletal Musculoskeletal: Reports system reviewed and no additional complaints, except as documented and Denies back pain Integumentary/Breasts Skin/Breast: Reports system reviewed and no additional complaints, except as documented and Denies wounds Neurologic Neurologic: Reports system reviewed and no additional complaints, except as documented, Denies confusion, Denies headache(s), Denies lack of coordination, Denies vertigo and Denies weakness Psychiatric Psychiatric: Reports system reviewed and no additional complaints, except as documented, Denies anxiety, Denies confusion, Denies depression, Denies paranoia, Denies suicidal ideation and Denies tactile hallucinations Endocrine Endocrine: Reports system reviewed and no additional complaints, except as documented and Denies fatigue Hematologic/Lymphatic Hematologic/Lymphatic: Reports system reviewed and no additional complaints, except as documented and Denies lymphadenopathy Allergic/Immunologic Allergic/Immunologic: Reports system reviewed and no additional complaints, except as documented, Denies throat swelling, Denies urticaria and Reports wheezing ED Exam General Limitations: Present no limitations General appearance: Present alert and in no apparent distress Head Head exam: Present atraumatic Eye Eye exam: Present normal appearance, PERRL and EOMI ENT ENT exam: Present normal exam, normal oropharynx and mucous membranes moist Neck Neck exam: Present normal inspection, full ROM and trachea midline Chest Chest inspection: Present normal inspection and symmetric chest wall rise Respiratory Respiratory exam: Present normal lung sounds bilaterally and wheezes; Absent respiratory distress, stridor, accessory muscle use or prolonged expiratory phase Expanded Respiratory Exam Location: Right: wheezes and Upper: wheezes Cardiovascular Cardiovascular exam: Present regular rate, normal rhythm and normal heart sounds Abdominal Exam Abdominal exam: Present soft and normal bowel sounds Extremities Exam Extremities exam: Present normal inspection and full ROM Back Exam Back exam: Present normal inspection and full ROM Neurological Exam Neurological exam: Present alert, oriented X3 and CN II-XII intact Psychiatric Psychiatric exam: Present normal affect and normal mood Skin Skin exam: Present warm, dry, intact and normal color Course Quality Measures none Orders Category Date Time Status XR chest 2V Stat Exams 02/15/25 13:45 Completed Acetaminophen Tab [Tylenol ES Tab] Med 02/15/25 13:45 Discontinued 1,000 mg PO X1 ONE Albuterol/Ipratr Rt Kaylene [Duoneb Rt Kaylene] Med 02/15/25 13:45 Discontinued 3 ml INH X1 ONE Dexamethasone Inj [Decadron Inj] Med 02/15/25 13:45 Discontinued 10 mg PO X1 ONE cefTRIAXone [Rocephin] 1,000 mg Med 02/15/25 13:45 Discontinued Lidocaine 1% 20 ml [Xylocaine 1% 20 ML] 2.1 ml IM X1 Vital Signs Vital signs: Vital Signs Temperature 98.0 F 02/15/25 13:50 Pulse Rate 83 02/15/25 13:50 Respiratory Rate 18 02/15/25 13:50 Blood Pressure 149/100 H 02/15/25 13:50 Pulse Oximetry (%) 97 02/15/25 13:50 Oxygen Delivery Method Room Air 02/15/25 13:50 Upper Respiratory Infection MDM Narrative MDM Narrative:: 49-year-old female with no known medical history presents to the emergency room with a chief complaint of cough, congestion, sore throat x 5 days Patient is hemodynamically stable and in no apparent distress. Patient is afebrile not tachycardic not tachypneic and her O2 saturation is 97% on room air Physical examination shows some upper right lobe wheezing with auscultation. Patient also states that her throat is hurting. Patient states she was given oral antibiotics at her primary care provider's office for pneumonia as well as strep. Patient states this has been 5 days and her symptoms are not getting any better. X-ray of the chest was completed and was negative for any pneumonic infiltrates. Patient was discharged and educated to follow-up with primary care provider in the next 24 to 48 hours and return to the emergency room for any evidence of worsening signs or symptoms Patient data External records reviewed:: [facility] previous records Clinical information provided by:: patient Social determinants that could affect healthcare access:: none Patient has the following chronic illnesses:: No chronic illness How is presenting disease/condition affected by chronic disease/condition?: no chronic disease Evaluation data The following diagnostics were reviewed and interpreted by me:: lab results and radiology exam(s) Lab and/or radiology exams considered but not ordered:: Labs and radiology exams considered and ordered Interpretation Summary: Chest x-ray-no pneumonic infiltrates Medications / Prescriptions Medications or Prescriptions considered but not ordered:: Medication given Medication administrations:: Medication Administration History Discontinued Medications Acetaminophen (Acetaminophen 500 Mg Tablet) 1,000 mg PO X1 ONE Stop: 02/15/25 13:46 Last Admin: 02/15/25 15:30 Dose: 1,000 mg Documented By: Albuterol/Ipratropium (Albuterol/Ipratropium (Duoneb) Rt Kaylene 3 Ml Nebu) 3 ml INH X1 ONE Stop: 02/15/25 13:46 Last Admin: 02/15/25 15:28 Dose: 3 ml Documented By: [facility] Ceftriaxone Sodium 1,000 mg/ (Lidocaine HCl 2.1 ml) 0 mg IM X1 ONE; Protocol Stop: 02/15/25 13:46 Last Admin: 02/15/25 15:31 Dose: 1,000 mg Documented By: Dexamethasone Sodium Phosphate (Dexamethasone Sod Phos Inj 10 Mg/Ml Vial) 10 mg PO X1 ONE Stop: 02/15/25 13:46 Last Admin: 02/15/25 15:31 Dose: 10 mg Documented By: Medication given Consultations Consultation(s) initiated? (list below): No Diagnosis Upper Respiratory Differential Diagnosis: upper respiratory infection, viral infection, bronchitis, influenza and other (Community-acquired pneumonia) Most likely diagnosis given after review of the tests above:: Upper respiratory infection Admission Indicated Admission indicated?: not indicated Admission Request Was there a request for admission?: No Disposition Plan Disposition Plan: Discharge Discharge Attestation Discharge Attestation: The patient and all family members were given an opportunity to ask questions and understood the discharge instructions. Discharge instructions specifically effects, indications for sooner follow up or return to the emergency department, and the expected course of current diagnosis. Patient condition: Stable Discharge Plan Plan Patient Disposition: HOME (Self Care) Discharge Disposition comment: Stable Prescriptions/Referrals Prescriptions/Med Rec: New azithromycin [Zithromax Z-Óscar] 250 mg tablet See Rx Instructions .ROUTE .COMPLEX Qty: 6 0RF Rx Instructions: For 250 mg dose pack: take 500 mg today (day 1), then 250 mg for 4 days (days 2-5) albuterol sulfate [Ventolin HFA] 90 mcg/actuation HFA aerosol inhaler 2 puff inhalation Q6H PRN (Reason: shortness of breath or wheezing) Qty: 6.7 0RF No Action metoprolol succinate 50 mg tablet extended release 24 hr 50 mg PO QDAY sertraline 100 mg tablet 100 mg PO QDAY pantoprazole 40 mg tablet,delayed release (DR/EC) 40 mg PO QDAY ciprofloxacin HCl 500 mg tablet 500 mg PO BID Qty: 20 0RF metronidazole 500 mg tablet 500 mg PO TID Qty: 21 0RF ciprofloxacin HCl 500 mg tablet 500 mg PO BID Qty: 10 0RF Referrals: No Primary/Family,Physician [Primary Care Provider] - In 1 week Problem List Clinical Impression: Upper respiratory infection, viral Patient/Caregiver Discharge Instructions Education Materials: ED URI, Viral, No Abx (Adult) Additional Instructions: Please follow-up with your primary care provider in the next 24 to 48 hours Antibiotics are sent to your pharmacy please pick them up and take them as indicated For any evidence of worsening signs or symptoms return to the emergency room immediately Print Language: Taiwanese Stand Alone Forms: [employer] Award Info., Work/School Release, Patient Portal Info Letter PA/LEON Supervising Physician CLAYTON/LEON Supervising Physician: Dr. Curry
[2025-02-15] MEDS: ALBUTEROL/IPRATROPIUM (Duoneb) RT SOL 3 ML NEBU INH (15:28)
[2025-02-15 15:29] VITALS: PULSE 84; RESP 18; O2SAT 97
[2025-02-15] MEDS: ACETAMINOPHEN 500 MG TABLET 1000 MG PO (15:30)
[2025-02-15] MEDS: DEXAMETHASONE SOD PHOS INJ 10 MG/ML VIAL PO (15:31)
[2025-02-15] MEDS: cefTRIAXone 1,000 MG, LIDOCAINE 1% 20 ML 2.1 ML IM (15:31)
== END 2025-02-15 16:36 | disposition home or self-care (01) ==
PROVIDERS: Emergency Provider Emergency Medicine
DX: J06.9 Acute upper respiratory infection, unspecified (principal)
CPT/HCPCS: 71046; 94640; 96372; 99283; A9270; J0696; J1100; J3490